=== PATIENT | male | born 1960 | race Two or more races ===

== ENCOUNTER → 2016-09-17 | Day surgery (SDC) | payer BC ==
[~2016-09-17] MED LIST: ADVIL200 M2 PO; FISH OIL 1,001000 M2; FLEXERIL10 MG PO; HYDROCODON-ACE1 EAC5 PO; LORTAB 7.51 TAB 7.5/ PO; MULTI VITAMIN1 EACH PO; VITAMIN C500 M7 PO; VITAMIN D1000 UNI2 PO
--- NOTE | ~2016-09-17 | OR ---
Unit #: [id number] #: [id number] Patient: AISHA FOSTER [id number] [address] [address] [id number] O MR#: [id number] NAME: AISHA FOSTER. ROOM: Date of Procedure: 09/17/2016 Admission Date: 09/17/2016 Surgeon: Evan Nascimento M.D. : 1960 Attending Physician: Evan Nascimento M.D. Referring Physician: Evan Nascimento M.D. Primary Care Physician: Fabiano Tijerina M.D. OPERATIVE REPORT PROCEDURE PERFORMED Colonoscopy to cecum. INDICATIONS FOR PROCEDURE The patient with history of multiple large polyps with high-grade dysplasia, undergoing repeat evaluation to look for any recurrent or remnant polyps. MEDICATIONS Monitored anesthesia. POSTOPERATIVE FINDINGS 1. Two sites of largest polypectomy in the sigmoid and rectum were both identified with tattooing and appeared to be completely normal with no remnant or residual polyps. 2. Rest of the exam to cecum was normal with good prep. PLAN Repeat colonoscopy in 3 years. DESCRIPTION OF PROCEDURE The patient was explained of the procedure, risks, and benefits along with risks and benefits of anesthesia. He was brought to the endoscopy room. Propofol anesthesia was given. Rectal exam was done, which was normal. Colonoscope was lubricated, passed up the rectum, advanced under direct vision all the way to cecum. Cecum was identified by ileocecal valve and appendiceal orifice. At this point, I started to pull the scope out carefully looking. Previous polypectomy sites were identified. No polyps or masses were seen at this time. Gently, the scope was pulled out. He tolerated it well. No major complications were seen. Dictated by... Saima Fong/paige TD: 09/18/2016 03:29 JOB #: [id number] Unit #: [id number] #: [id number] Patient: AISHA FOSTER OPERATIVE REPORT Page 1 of 1 X Evan Nascimento MD X PROCEDURE OPERATIVE NOTE
== END | disposition home or self-care (01) ==
LOC: COPS 09:46
DX: Z09 Encounter for follow-up examination after completed treatment for conditions other than malignant neoplasm (principal); M54.5 Low back pain; F17.210 Nicotine dependence, cigarettes, uncomplicated; Z86.010 Personal history of colon polyps; Z79.891 Long term (current) use of opiate analgesic; Z79.899 Other long term (current) drug therapy
CPT/HCPCS: J2250

== ENCOUNTER → 2016-10-19 | Outpatient (CLI) | payer BC ==
--- NOTE | ~2016-10-19 | CR63 ---
[facility] A Service of [facility] & [facility] RADIOLOGY TEXT RESULTS PATIENT: AISHA FOSTER LOCATION: [facility] : 62 UNIT #: [id number] AGE: [address]: Fabiano Tijerina MD SEX: M ORDER DR: [id number] [facility] [address] [place], [place] [address] [id number] O MR#: [id number] Acc #: [id number] NAME: AISHA FOSTER. : 1960 SEX: M STUDY DATE/TIME: 10/19/2016 15:40 UNIT: [facility] ROOM: STUDY DESCRIPTION: CR Chest 2 View Attending Physician: Fabiano Tijerina M.D. Referring Physician: Fabiano Tijerina M.D. Ordering Physician: Fabiano Tijerina M.D. Primary Care Physician: Fabiano Tijerina M.D. MEDICAL IMAGING REPORT This report is preliminary unless electronic signature is present EXAM PA and lateral chest 10/19/2016 COMPARISON 07/04/2015. HISTORY History supplied is cough and congestion and sinus drainage for 1 month. FINDINGS PA and lateral views are obtained. The cardiovascular configuration remains normal and the lungs clear. CONCLUSION Negative chest. Dictated by... Mark Lopez M.D. THIS IS AN ELECTRONICALLY VERIFIED REPORT Mark Lopez M.D. at 10/20/2016 7:21 AM CARMEN/hoa TD: 10/19/2016 17:17 JOB #: [id number] MEDICAL IMAGING REPORT Page 1 of 1 COPY
== END | disposition home or self-care (01) ==
LOC: CRAD 15:30
DX: R05 Cough (principal); F17.200 Nicotine dependence, unspecified, uncomplicated
CPT/HCPCS: 71020